=== PATIENT | female | born 1955 ===

== ENCOUNTER 2024-11-21 10:32 | Outpatient (AMB) | payer MEDICARE, SELFPAY ==
[2024-11-21 10:37] VITALS: BP 132/60; PULSE 78; RESP 18; O2SAT 97; BMI 23.8
--- NOTE | 2024-11-21 10:37 | MHC.OFFVIS ---
Vital Signs 11/21/24 10:37 Height 5 ft 2 in Weight 130 lb BMI 23.8 BP 132/60 Blood Pressure Location Lt brachial Position Sitting Respiration 18 Pulse 78 Pulse Source Pulse Oximeter Pulse Oximetry (%) 97 Oxygen Delivery Method Room Air Intake Visit Reasons: Chronic right flank pain [employer] Required: No Allergies [id number] Reductase Inhibitor Allergy (Unknown, Verified 11/19/24 08:59) Muscle Aches HPI Comments Details: Soto (Jami) is very pleasant 69 years old female who is presenting in my office with complains on right upper quadrant abdominal pain and sensation of bulging right upper quadrant. She reported that this pain started 2 months after the lobectomy surgery on the right she had performed to remove the lung cancer lesion. Since then she reports severe pain in the projection of the right abdominal wall radiating into the mid back in the area of the lateral and posterior lower right chest. She went for cholecystectomy 2 years after with successful removal of gallbladder however it did not alleviate her pain. She is under observation of thoracic surgeon and she goes for the CT scan once a year to determine if there is continuation of the growth of the cancer. She can not do activities of daily living because of her pain but she is able to sleep normally and she can take care of herself. She reports that movements aggravate her pain. Applications of heat called topical medications and oral medications make her pain better. She was taking gabapentin 200 mg 3 times a day with no side effects and minimal improvement. In terms of tissue damage he reports her pain as pinching, cramping, crushing, tight, squeezing, tearing sensation. She completed physical therapy 12 sessions and continues home exercise program with minimal improvement. Massage therapy does not make her pain better. Acupuncture does not patent make her pain better. She denies any past medical history short of history of lung cancer. Surgical history is above. She denies smoking cigarettes [place] smoked. She admits occasional drink alcohol once a month she denies recreational drugs. Review of Systems Const All systems reviewed & are unremarkable except as noted in HPI and below ENT Reports Normal hearing present Neuro Reports Normal hearing present, Denies Abnormal speech present, Denies confusion and Denies Sensory deficit (Neuro) Psych Denies confusion Physical Exam Vital Signs: Last Vital Signs Pulse 78 11/21/24 10:37 Resp 18 11/21/24 10:37 BP 132/60 11/21/24 10:37 Pulse Ox 97 11/21/24 10:37 Oxygen Delivery Method Room Air 11/21/24 10:37 BMI result Body Mass Index 23.8 Const General: no acute distress; No confusion Nutritional Appearance: average body habitus and thin Orientation/consciousness: patient oriented x3 and No confusion Limitations: no limitations Eyes General: appearance normal, both eyes and all related structures Pupils: Equal, round and reactive pupils present EOM: EOMs intact bilaterally Neck Neck: Yes full ROM Chest Other: On inspection of the chest and anterior surface of the abdomen there are very well-healed 1 cm long thoracic incisions from prior thoracoscopy and cancer removal. On the anterior surface of the patient's abdomen there are also incisions from prior early performed gallbladder surgery. All incisions are very well-healed no signs of inflammation, swelling, redness, pathological discharge. Resp Effort & Inspection: normal respiratory effort, able to speak in complete sentences, normal respiratory pattern, no audible wheezes and no cough Cardio Jugular venous distension: no JVD GI Inspection: Yes normal to inspection Neuro General: patient oriented x3, gait normal and No confusion Cranial nerves: Yes CN's II-XII intact bilaterally, Yes Equal, round and reactive pupils present, Yes Normal hearing present and Yes Ability to bilaterally elevate shoulders present Speech: No Abnormal speech present Gait exam (Neuro): Normal gait present Motor exam (neuro): 5/5 motor strength present throughout Sensory Exam: No Sensory deficit (Neuro) Extrem General: No pedal edema Psych Speech and movement: Normal speech and movement present Affect: normal affect Attitude: cooperative Thought process: Normal thought process present Thought content: Normal thought content present Insight: Good insight present (Psych) Judgement: Good judgement present (Psych) Assessment & Plan Assessment & Plan (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 It looks like that gabapentin helps her pain. And there is no side effects of from gabapentin. I also offered her to go for diagnostic intercostal nerve block with the rib sides determined by palpation under x-ray guidance. With good results of the intercostal nerve block treatment of the intercostal sprint versus Curonix stimulation could be offered to the patient. Medications: New gabapentin 600 mg (2 x 300 mg) PO TID 180 caps 8RF 30 days Patient Instructions: I here by testify that I spent 45 minutes in conversation with this patient as well as planning her care investigating the number of her pharmacy and organizing this note. Coding Level of Care Code New Pt Level 4 (90993) Diagnoses Intercostal neuralgia G58.8 Chronic pain syndrome G89.4
--- OUTSIDE RECORDS SUMMARY | 2024-11-21 11:31 | XMS_ITS | Clinical Summary ---
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 Active cholecalciferol (VITAMIN D-3) 25 mcg (1,000 unit) tablet Take by mouth. Activ e coenzyme Q-10 200 mg capsule Take 200 mg by mouth daily. 9 Active fluticasone propion-salmetero L (Advair Diskus) 100-50 mcg/dose diskus inhalerIndication s:Mild persistent asthma without complication Inhale 1 puff by mouth 2 (two) times a day. Rinse mouth with water after use to reduce aftertaste and incidence of candidiasis. Do not swallow. 3 each 4 5 08/08/19 26 Active tiZANidine (ZANAFLEX) 4 mg tablet TAKE 1 TABLET (4 MG TOTAL) BY MOUTH 1 (ONE) TIME EACH DAY IF NEEDED FOR MUSCLE SPASMS. 90 tablet 1 5 Active gabapentin (NEURONTIN) 100 mg capsuleIndication s:Chronic neck and back pain TAKE 2 CAPSULES BY MOUTH 3 TIMES A DAY. 180 capsule 1 5 Active Active Problems Problem Noted Date Diagnosed Date History of lung cancer 06/28/2024 Assessment & Plan (10/04/2024 3:16 PM EDT): Ms. Kaplan is a 69 yr. female who is S/P a robotic VATS right lower lobectomy for a stage 1A3 adenocarcinoma in July 2020. She did not require adujvant chemotherapy. During patient's last visit with us in June it was noted that there were new findings of the centrilobular groundglass nodules in the right lung base she was informed that we will move forward with a 3-month chest CT scan follow-up to ensure resolution for which she presents for review today. While she was in office we did review her most recent chest CT scan which was performed at [facility] and shows interval clearing of previously seen groundglass opacities in the right lower lobe with scattered small pulmonary nodules similar to prior which all remained stable. She was educated that we will continue with her regular 12-month chest CT surveillance with her next chest CT scan due in September 2025 and have a visit at the thoracic surgery department thereafter to discuss results.. Assessment & Plan (06/28/2024 2:07 PM EST): Ms. Kaplan is a 69 yr. female who is S/P a robotic VATS right lower lobectomy for a stage 1A3 adenocarcinoma in July 2020. She did not require adujvant chemotherapy. Her most recent surveillance chest CT scan which was performed on 2024 which shows mild bronchial wall thickening with multiple small new centrilobular groundglass nodules at the right lung base suggestive of an infectious/inflammatory process also noted is stable scarring at the right apex with a stable 4 mm groundglass nodule in the right apex as well as a stable triangular-shaped groundglass 6 mm nodule in the anterior right upper lobe and a stable elongated 4 mm nodule in the inferior right upper lobe. Due to the new findings of the centrilobular groundglass nodules in the right lung base she was informed that we will move forward with a 3-month chest CT scan follow-up to ensure resolution. Her next chest CT scan follow-up will be due in September 2024 and have a visit at the thoracic surgery department thereafter to discuss results. Pulmonary nodule 06/28/2024 Assessment & Plan (06/28/2024 2:08 PM EST): Due to the new findings of the centrilobular groundglass nodules in the right lung base she was informed that we will move forward with a 3-month chest CT scan follow-up to ensure resolution. Hyperlipidemia 05/18/2024 Overview (05/18/2024): Last Assessment & Plan: Patient with significant hyperlipidemia she was placed back on statin therapy and she is on muscle pain again so we will discontinue statin therapy start her on Zetia 10 mg a day Osteopenia 05/18/2024 Chronic right flank pain 08/03/2023 Assessment & Plan (10/04/2024 3:16 PM EDT): Unfortunately she continues to have a significant amount of pain along her right sided chest wall incisions that radiate to her back she states that this pain was exacerbated after having recent gallbladder surgery and is requesting a referral to pain management. Assessment & Plan (06/28/2024 2:07 PM EST): Unfortunately she continues to have a significant amount of pain along her right sided chest wall incisions that radiate to her back she states that this pain was exacerbated after having recent gallbladder surgery and is requesting a referral to pain management. Syncope 07/28/2020 Overview (05/18/2024): Last Assessment & Plan: Patient with an episode of syncope. An unusual episode because it persisted for almost 12 hours. Her symptoms started in the evening she went to bed. When she woke up the next morning she developed presyncopal symptoms after being upright for a few minutes. She went to the bathroom brushed her teeth got lightheaded and passed out again there does not seem to be any antecedent event such as diarrhea nausea vomiting or decreased fluid intake but this type of pattern is consistent with a hyperperfused of pattern due to poor filling there is no indication of pulmonary embolism. It is unusual for to be an arrhythmia to persist so long and also be somewhat positional each time she had syncope she was upright. I suspect she was orthostatic for unclear reasons possibly vagally mediated. I doubt the pulmonary nodule which seems to be metabolically active is responsible for any the symptoms since its a lower lung nodule and not a Pancoast tumor. The patient has no indication that the mass is compressing the superior or inferior vena cava. There is no indication that this is an endocrine based tumor. No indication that she has severe pulmonary hypertension which could prompt a syncopal episode. I think this was a simple reflect syncope. I have offered an ROCT monitor which I think would be appropriate the extended period of monitoring of also discussed with her implantable loop recorder which she is really not interested in at this time. I would recommend that we do a 30-day monitoring and if that is negative and there is no further symptoms just consider this a reflux event Osteoporosis 04/22/2020 Overview (05/18/2024): start fosamax 04/24/20 Allergic rhinitis 09/21/2018 Diverticulosis of sigmoid colon 09/21/2018 Resolved Problems Problem Noted Date Diagnosed Date Resolved Date Biliary colic 08/03/2023 06/26/2024 Encounters Date Type Department Care Team Description 11/06/2024 4:00 PM EDT Office Visit Internal Medicine [address] [phone] Lynsey Orozco PA Chronic neck and back pain (Primary Dx) 10/30/2024 11:00 AM EDT Treatment [address] [phone] Ofelia Gonzalez PT Chronic neck and back pain (Primary Dx) 10/23/2024 11:00 AM EDT Treatment [address] [phone] Ofelia Gonzalez PT Chronic neck and back pain (Primary Dx) 10/12/2024 11:00 AM EDT Office Visit Pulmonolgy [address] [phone] Moira Perez NP Mild persistent asthma without complication (Primary Dx); Chronic cough; History of lung cancer; Non-seasonal allergic rhinitis, unspecified trigger; Pulmonary nodule 10/04/2024 Telephone Thoracic Surgery - [place] [address] [place] [phone] Gala Foote [place] 10/03/2024 9:30 AM EDT Office Visit Thoracic Surgery [facility] [address] [place] [phone] Michael Barnes, PA History of lung cancer (Primary Dx); Chronic right flank pain 10/01/2024 9:44 AM EDT - 10/01/2024 11:59 PM EDT Hospital Encounter [facility] CT Scan [address] [place] [phone] History of lung cancer; Chronic right flank pain; Pulmonary nodule Discharge Disposition: Home or Self Care 10/01/2024 9:06 AM EDT - 10/01/2024 11:59 PM EDT Hospital Encounter [facility] CT Scan [address] [place] [phone] Right upper quadrant abdominal pain Discharge Disposition: Home or Self Care 09/25/2024 11:30 AM EDT Treatment [facility] [address] [address] Ofelia Gonzalez, PT Chronic neck and back pain (Primary Dx) 09/12/2024 11:30 AM EDT Treatment [facility] [address] [phone] Ofelia Gonzalez, PT Chronic neck and back pain (Primary Dx) 09/10/2024 11:30 AM EDT Treatment [facility] [address] [phone] Ofelia Gonzalez, PT Chronic neck and back pain (Primary Dx) 09/05/2024 2:00 PM EDT Treatment [facility] [address] [phone] Ofelia Gonzalez, PT Chronic neck and back pain (Primary Dx) 09/05/2024 11:00 AM EDT Ancillary Procedure Pulmonolgy - [place] [address] [facility] [address] [place] [phone] Chronic cough 09/03/2024 11:30 AM EDT Treatment [address] [phone] MosOfelia rowan, PT Chronic neck and back pain (Primary Dx) 08/29/2024 10:30 AM EDT Treatment [address] [phone] Mosjaysonl, Ofelia, PT Chronic neck and back pain (Primary Dx) from Last 3 Months Immunizations Name Administration Dates Next Due Tdap Tetanus diptheria acell ular pertussis (Boostrix; Adacel) 7yo and older 05/16/2015 Surgical History Surgery Date Site/Laterality Comments HYSTERECTOMY 1998 PROCEDURE: HISTORICAL HYSTERECTOMY; COMMENT: Dr. Rodriguez due to fibroids and DUB- still has ovaries EYE SURGERY 2012 PROCEDURE: HISTORICAL EYE SURGERY; COMMENT: ptosis correction COLONOSCOPY 11/25/2016 PROCEDURE: HISTORICAL COLONOSCOPY; COMMENT: repeat 10 years OTHER SURGICAL HISTORY 08/05/2020 Right PROCEDURE: [facility] ANES THORACOTOMY & THORACOSCOPY PULMONARY RESC; COMMENT: 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 Handy CHOLECYSTECTOMY 10/17/2023 PROCEDURE: [facility] LAPAROSCOPY SURG CHOLECYSTECTOMY Medical History Medical History Date Comments Allergic rhinitis 09/21/2018 DX:Allergic rh initis Diverticulosis of sigmoid colon 09/21/2018 DX:Diverticulosis of sigmoid colon Hyperlipidemia DX:Hyperlipidemi a Osteoporosis 04/22/2020 DX:Osteoporosis; COMMENT: start fosamax 04/24/20 History of COVID-19 05/21/2021 DX:History o f COVID-19; COMMENT: no residual symptoms History of lung cancer DX:Histor y of lung cancer; COMMENT: s/p RLL removal 07/2020 Dr. Handy Family History Medical History Relation Name Comments Melanoma Brother 1 HTN Prostate cancer Brother 2 HTN Prostate cancer Father 83 Hyperthyroidism Mother HEp C cirrho sis, heart disease age 83 Breast cancer Sister age 57 y Relation Name Status Comments Brother 1 Brother 2 Father Mother Sister Social History Tobacco Use Types Packs/Day Years Used Date Smoking Tobacco: Never Smokeless Tobacco: Never Tobacco Cessation:Counseling Given: Not Answered Alcohol Use Standard Drinks/Week Comments Yes 0 (1 standard drink = 0.6 oz pur e alcohol) Comments Unknown Sex and Gender Information Value Date Recorded Sex Assigned at Female 08/24/2024 11:43 AM EDT Legal Sex Female 2:13 PM EST Gender Identity Female 08/24/2024 11:43 AM EDT Sexual Orientation Straight 08/24/2024 11 :43 AM EDT Obstetrics History Last Filed Vital Signs Vital Sign Reading Time Taken Comments Blood Pressure 128/79 11/06/2024 3:48 PM EDT Pulse 66 11/06/2024 3:48 PM EDT Temperature 36.7 C (98 F) 11/06/2024 3:48 PM EDT Respiratory Rate 20 10/12/2024 10:5 3 AM EDT Oxygen Saturation 98% 11/06/2024 3:48 PM EDT Inhaled Oxygen Concentration - - Weight 58.8 kg (129 lb 11.2 oz) 11/06/2024 3:48 PM EDT Height 157.5 cm (5' 2 ) 11/06/2024 3:48 PM EDT Body Mass Index 23.72 11/06/2024 3:48 PM EDT Plan of Treatment Upcoming Encounters Date Type Department Care Team (Late st Contact Info) Description 11/30/2024 11:20 AM EDT Consult Gastroenterology [facility] [address] [phone] Ame Ball NP [address] [address] 02/12/2025 11:00 AM EDT Office Visit Pulmonolgy - [place] [address] [phone] Moira Perez NP [address] [address] 05/13/2025 11:00 AM EST Office Visit Internal Medicine - [place] [address] [phone] Lynsey Orozco PA 175 [facility] [address] [place] [address] Health Maintenance Due Date Last Done Comments Pneumococcal Vaccine: 50+ Years (1 of 2 - PCV) 1974 Zoster Vaccines (1 of 2) 2005 RSV Immunization Adult Patients (1 - Risk 60-74 years 1-dose series) 2015 Depression Screening 04/24/2022 Falls Risk Assessment 04/24/2022 Hepatitis C Screening 04/24/2022 Medicare Annual Wellness Visit 04/24/2022 Social Influencers of Health Screening 04/24/2022 COVID-19 Vaccine ( season) 2024 Breast Cancer Screening 08/28/2024 08/29/19 23, 06/26/2021, 04/22/2020, Additional history exists Influenza Vaccine (#1) 2025 DTaP,Tdap,and Td Vaccines (2 - Td or Tdap) 05/16/2025 05/16/2015 Colorectal Cancer Screening: Colonoscopy 11/25/2026 11/25/2016 Cholesterol Screening (Lipid Panel) 06/27/2029 06/27/2024, 06/24/2023 Osteoporosis Screening (Bone Density Screening) 04/22/2030 04/22/2020 HIB Vaccines Aged Out No longer eligi ble based on patient's age to complete this topic HPV Vaccines Aged Out No longer eligi ble based on patient's age to complete this topic Hepatitis A Vaccines Aged Out No long er eligible based on patient's age to complete this topic Hepatitis B Vaccines Aged Out No long er eligible based on patient's age to complete this topic IPV Vaccines Aged Out No longer eligi ble based on patient's age to complete this topic MMR Vaccines Aged Out No longer eligi ble based on patient's age to complete this topic Meningococcal ACWY Vaccine Aged Out N o longer eligible based on patient's age to complete this topic Meningococcal B Vaccine Aged Out No l onger eligible based on patient's age to complete this topic RSV Immunization Patients Under 20 months Aged Out No longer eligible based on patient's age to complete this topic Varicella Vaccines Aged Out No longer eligible based on patient's age to complete this topic Procedures Procedure Name Priority Date/Time Associated Diagnosis Comments CT CHEST WO CONTRAST Routine 10/01/2024 9:47 AM EDT History of lung cancer Chronic right flank pain Pulmonary nodule CT ABDOMEN PELVIS WO CONTRAST Routine 10/01/2024 9:35 AM EDT Right upper quadrant abdominal pain PULMONARY FUNCTION TESTING Routine 09/05/2024 11:32 AM EDT Chronic cough PULMONARY FUNCTION TESTING Routine 09/05/2024 11:32 AM EDT Chronic cough LIPID PANEL WITH REFLEX TO DIRECT LDL Routine 06/27/2024 11:11 AM EST Abnormal chest CT Right upper quadrant abdominal pain History of lung cancer Pure hypercholesterolemia [facility] SCREENING DIGITAL Routine 08/28/2022 3:10 PM EDT Encounter for screening mammogram for malignant neoplasm of breast [facility] DEXA AXIAL SKELETON Routine 04/22/2020 3:25 PM EST Encounter for screening for osteoporosis COLONOSCOPY Routine 11/25/2016 from Last 3 Months or Most Recently Relevant to Health Maintenance Results * CT Chest wo Contrast (10/01/2024 9:47 AM EDT) Anatomical Region Laterality Modality Body Computed Tomogra phy 10/02/2024 5:37 AM EDT Impressions 10/02/2024 5:46 AM EDT Interval clearing of previously seen groundglass opacities in the right lower lobe with scattered small pulmonary nodules, similar to prior. -------- FINAL REPORT -------- Dictated By: Kirti Andujar Dictated Date: 10/02/2024 05:37 ET Assigned Physician: Kirti Andujar Reviewed and Electronically Signed By: Kirti Andujar Signed Date: 10/02/2024 05:46 ET Workstation ID: [id number] Transcribed By: Self Edit Transcribed Date: 10/02/2024 05:37 ET Narrative 10/02/2024 5:46 AM EDT INDICATION: History of lung cancer with new groundglass nodules in the right lung base TECHNIQUE: Multiple contiguous axial CT images were obtained of the chest without intravenous contrast. Multiplanar reformats were created and interpreted. The CT scanner utilized low- dose iterative reconstruction technique with automatic exposure control based on patient size. DLP: 152.22 mGy-cm COMPARISON: June 2024, June 2022 and June [address] FINDINGS: Lack of intravenous contrast limits evaluation of the penny, vascular structures and abdominal viscera. LUNGS/PLEURA: Postsurgical appearance in the right lower lobe with volume loss and cystic change in the medial right lung base; similar to prior. Central airways are patent. Mild biapical pleural-parenchymal scarring. Previously seen groundglass opacities in the right lung base demonstrate interval clearing. 6 mm groundglass/partially solid nodule in the anterior right upper lobe (series 3, image 48); similar to prior. 4 mm solid elongated nodule in the inferior right upper lobe (series 3, image 113); similar to prior. 3 mm nodule in the left lung apex (series 3, image 21); similar to priors. Other scattered small pulmonary nodules are similar to prior. MEDIASTINUM: Evaluation for hilar lymphadenopathy is limited due to lack of IV contrast. Calcification of the thyroid gland is again noted. No definite enlarged mediastinal lymphadenopathy. MISCELLANEOUS: No axillary lymphadenopathy. UPPER ABDOMEN: Status post cholecystectomy. Hepatic and splenic calcification likely representing prior granulomatous disease. Calcified diverticulum. BONES AND SOFT TISSUES: Scattered degenerative changes seen throughout the bones. Procedure Note Kirti Andujar MD - 10/02/2024 INDICATION: History of lung cancer with new groundglass nodules in theright lung base TECHNIQUE: Multiple contiguous axial CT images were obtained of the chestwithout intravenous contrast. Multiplanar reformats were created andinterpreted. The CT scanner utilized low-dose iterative reconstructiontechnique with automatic exposure control based on patient size. DLP: 152.22 mGy-cm COMPARISON: June 2024, June 2022 and June [address] FINDINGS: Lack of intravenous contrast limits evaluation of the penny,vascular structures and abdominal viscera. LUNGS/PLEURA: Postsurgical appearance in the right lower lobe with volumeloss and cystic change in the medial right lung base; similar to prior.Central airways are patent. Mild biapical pleural-parenchymal scarring. Previously seen groundglass opacities in the right lung base demonstrateinterval clearing. 6 mm groundglass/partially solid nodule in the anterior right upper lobe(series 3, image 48); similar to prior. 4 mm solid elongated nodule inthe inferior right upper lobe (series 3, image 113); similar to prior. 3mm nodule in the left lung apex (series 3, image 21); similar to priors.Other scattered small pulmonary nodules are similar to prior. MEDIASTINUM: Evaluation for hilar lymphadenopathy is limited due to lackof IV contrast. Calcification of the thyroid gland is again noted. Nodefinite enlarged mediastinal lymphadenopathy. MISCELLANEOUS: No axillary lymphadenopathy. UPPER ABDOMEN: Status post cholecystectomy. Hepatic and spleniccalcification likely representing prior granulomatous disease. Calcifieddiverticulum. BONES AND SOFT TISSUES: Scattered degenerative changes seen throughout thebones. IMPRESSION: Interval clearing of previously seen groundglass opacities in the rightlower lobe with scattered small pulmonary nodules, similar to prior. -------- FINAL REPORT -------- Dictated By: Kirti Andujar Dictated Date: 10/02/2024 05:37 ET Assigned Physician: Kirti Andujar Reviewed and Electronically Signed By: Kirti Andujar Signed Date: 10/02/2024 05:46 ET Workstation ID: [id number] Transcribed By: Self Edit Transcribed Date: 10/02/2024 05:37 ET Michael LOPEZ IMG CT PROCEDURES Final Result * CT Abdomen Pelvis wo Contrast (10/01/2024 9:35 AM EDT) Anatomical Region Laterality Modality Body Computed Tomogra phy 10/01/2024 10:1 8 AM EDT Impressions 10/01/2024 10:23 AM EDT 1. Moderate amount of stool in the colon. 2. Diverticulosis -------- FINAL REPORT -------- Dictated By: Kirti Andujar Dictated Date: 10/01/2024 10:18 ET Assigned Physician: Kirti Andujar Reviewed and Electronically Signed By: Kirti Andujar Signed Date: 10/01/2024 10:23 ET Workstation ID: [id number] Transcribed By: Self Edit Transcribed Date: 10/01/2024 10:18 ET Narrative 10/01/2024 10:23 AM EDT INDICATION: Right upper quadrant/right flank pain with history of cholecystectomy and right lung surgery TECHNIQUE: Multiple contiguous axial CT images were obtained of the abdomen and pelvis without IV contrast. Multiplanar reformats were created and interpreted. Enteric contrast was not administered.The CT scanner utilized low-dose iterative reconstruction technique with automatic exposure control based on patient size. DLP: 502.37 mGy-cm COMPARISON: Prior chest CT June 2024 and prior PET/CT July 2020 FINDINGS:Lack of intravenous contrast limits evaluation of the penny, vascular structures and visualized abdominal viscera. Bowel related pathology may be occult on CT without enteral opacification. LUNG BASES: Volume loss and cystic change in the medial right lung base; similar to prior. Postsurgical appearance in the right lower lobe. HEPATOBILIARY: Unenhanced liver demonstrates calcification in keeping with prior granulomatous disease. Status post cholecystectomy with dilatation of the common bile duct which may represent reservoir effect. SPLEEN: Splenic calcifications which may represent prior granulomatous disease. PANCREAS: Unenhanced pancreas is unremarkable. ADRENALS: No nodules. KIDNEYS/URETERS: No hydronephrosis or hydroureter. No obstructing nephrolithiasis. PELVIC ORGANS/BLADDER: Unremarkable. LYMPH NODES/PERITONEUM / RETROPERITONEUM: Unremarkable VESSELS: No aneurysm. GI TRACT: Moderate amount of stool in the colon. Diverticulosis. Fat-containing umbilical hernia. No small or large bowel obstruction. BONES AND SOFT TISSUES: Scattered degenerative changes. Procedure Note Kirti Andujar MD - 10/01/2024 INDICATION: Right upper quadrant/right flank pain with history ofcholecystectomy and right lung surgery TECHNIQUE: Multiple contiguous axial CT images were obtained of theabdomen and pelvis without IV contrast. Multiplanar reformats werecreated and interpreted. Enteric contrast was not administered.The CTscanner utilized low-dose iterative reconstruction technique withautomatic exposure control based on patient size. DLP: 502.37 mGy-cm COMPARISON: Prior chest CT June 2024 and prior PET/CT July 2020 FINDINGS:Lack of intravenous contrast limits evaluation of the penny,vascular structures and visualized abdominal viscera. Bowel relatedpathology may be occult on CT without enteral opacification. LUNG BASES: Volume loss and cystic change in the medial right lung base;similar to prior. Postsurgical appearance in the right lower lobe. HEPATOBILIARY: Unenhanced liver demonstrates calcification in keeping withprior granulomatous disease. Status post cholecystectomy with dilatationof the common bile duct which may represent reservoir effect. SPLEEN: Splenic calcifications which may represent prior granulomatousdisease. PANCREAS: Unenhanced pancreas is unremarkable. ADRENALS: No nodules. KIDNEYS/URETERS: No hydronephrosis or hydroureter. No obstructingnephrolithiasis. PELVIC ORGANS/BLADDER: Unremarkable. LYMPH NODES/PERITONEUM / RETROPERITONEUM: Unremarkable VESSELS: No aneurysm. GI TRACT: Moderate amount of stool in the colon. Diverticulosis.Fat-containing umbilical hernia. No small or large bowel obstruction. BONES AND SOFT TISSUES: Scattered degenerative changes. IMPRESSION: 1. Moderate amount of stool in the colon. 2. Diverticulosis -------- FINAL REPORT -------- Dictated By: Kirti Andujar Dictated Date: 10/01/2024 10:18 ET Assigned Physician: Kirti Andujar Reviewed and Electronically Signed By: Kirti Andujar Signed Date: 10/01/2024 10:23 ET Workstation ID: [id number] Transcribed By: Self Edit Transcribed Date: 10/01/2024 10:18 ET us Lynsey LOPEZ IMG CT PROCEDURES Final Result * Pulmonary function testing: Carbon Monoxide Diffusing Capacity, Spirometry with Bronchodilator, Flow Volume Loop, Maximum Voluntary Ventilation, Spirometry, Vital Capacity Test (09/05/2024 11:32 AM EDT) Impressions Denisa Li MD - 09/05/2024 11:32 AM EDT 09/05/2024 Spirometry FEV1 109% predicted, FVC is 91% predicted, FEV1/FVC ratio is normal. No improvement post bronchodilators Lung volume TLC 102% normal, RV/TLC is 107% normal Diffusion DlCO/VA is 90% normal In Summary, this is a normal PFT Moira Perez NP PFT ORDERABLES Final R esult * (ABNORMAL) Lipid panel with reflex to direct LDL (06/27/2024 11:11 AM EST) Cholesterol 320(H) 0 - 200 mg/dL LAB CHEMISTRY METHOD 06/27/2024 2:40 PM EST [facility] Triglycerides 93 0 - 150 mg/dL LAB CHEMISTRY METHOD 06/27/2024 2:40 PM EST [facility] HDL 108 >=40 mg/dL LAB CHEMISTRY METHOD 06/27/2024 2:40 PM EST [facility] Comment:Results verified by repeat testing LDL Calculated 193(H) 0 - 100 mg/dL LAB CHEMISTRY METHOD 06/27/2024 2:40 PM EST [facility] VLDL Cholesterol Javid 18.6 mg/dL LAB CHEMISTRY METHOD 06/27/2024 2:40 PM EST [facility] Non HDL Chol. (LDL+VLDL) 212(H) <145 mg/dL LAB CHEMISTRY METHOD 06/27/2024 2:40 PM EST [facility] Chol/HDL Ratio 3.0 0.0 - 4.4 LAB CHEMISTRY METHOD 06/27/2024 2:40 PM EST [facility] Blood Venous blood specimen / Unknown Venipuncture / Unknown 06/27/2024 11:11 AM EST 06/27/2024 12:44 PM EST us Lynsey LOPEZ LAB BLOOD ORDERABLES Fin al Result [facility] [address] [place] [address], * CARMELA SCREENING DIGITAL (08/28/2022 3:10 PM EDT) Anatomical Region Laterality Modality Mammography 08/26/2022 3:01 PM EDT Narrative 08/28/2022 3:10 PM EDT [facility] Diagnostic Imaging Department [address] [place] [address] Patient: CECILY KAPLAN /Age/Sex: 1955 - 67 - F Unit#: [id number] Location/Status: SPDIMA/REG CLI Mnemonic/Ordering Site: [facility] Ordering Physician: PASCUAL MALDONADO MD [facility] Screening Digital - 08/26/22 - EXAM: [facility] Screening Digital EXAM DATE AND TIME: 08/26/2022 3:27 PM HISTORY: Screening. 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 Sister had breast carcinoma at age 55. COMPARISON: 06/26/21, 04/22/20, 03/01/19, 02/27/18, 08/20/14 TECHNIQUE: CC and MLO views of both breasts were obtained using full field digital mammography. Bilateral digital breast tomosynthesis was performed in the MLO projection. Computer aided detection with H5 7.2-H and [employer] 3D 3.1 was employed. TISSUE DENSITY: c. The breasts are heterogeneously dense, which may obscure small masses. FINDINGS: A 6 mm asymmetry is seen in the inferior right breast, MLO views only, possibly summation artifact. MLO spot compression tomosynthesis views and full lateral tomosynthesis views are recommended for further assessment. No grouped microcalcifications or areas of architectural distortion are seen. Vascular calcification is present. The skin is unremarkable. IMPRESSION: 1. Right breast asymmetry, for which additional views are recommended. The patient will be called back. 2. Stable mammographic appearance of the left breast. No evidence of malignancy is seen. BI-RADS: Category 0: Incomplete - Need Additional Imaging Evaluation RECOMMENDATION(S): 1: Special mammographic view(s) needed RIGHT 01631, 54481 8640F, 8177F Dictating Physician: TESSA GASTON MD Electronically Signed by: TESSA GASTON MD Dic Date/Time: 08/28/22 1508 Sign date/Time: 08/28/22 1510 Procedure Note Tessa Gaston MD - 06/17/2023 [facility] Diagnostic Imaging Department [address] [place] [address] Patient: CECILY KAPLAN D.O.B./Age/Sex: 1955 - 67 - F Unit#: [id number] [facility] CLI Mnemonic/Ordering Site: [facility] Ordering Physician: PASCUAL MALDONADO MD [facility] Screening Digital - 08/26/22 - EXAM: [facility] Screening Digital EXAM DATE AND TIME: 08/26/2022 3:27 PM HISTORY: Screening. Personal history of non-small cell carcinoma of theright lung treated with right lower lobectomy in 2020. Sister had breastcarcinoma at age 55. COMPARISON: 06/26/21, 04/22/20, 03/01/19, 02/27/18, 08/20/14 TECHNIQUE: CC and MLO views of both breasts were obtained using fullfield digital mammography. Bilateral digital breast tomosynthesis was performedin the MLO projection. Computer aided detection with iCAD PowerLook 7.2-H and[employer] 3D 3.1 was employed. TISSUE DENSITY: c. The breasts are heterogeneously dense, which mayobscure small masses. FINDINGS: A 6 mm asymmetry is seen in the inferior right breast, MLO views only,possibly summation artifact. MLO spot compression tomosynthesis views and fulllateral tomosynthesis views are recommended for further assessment. No grouped microcalcifications or areas of architectural distortion areseen. Vascular calcification is present. The skin is unremarkable. IMPRESSION: 1. Right breast asymmetry, for which additional views are recommended.The patient will be called back. 2. Stable mammographic appearance of the left breast. No evidence ofmalignancy is seen. BI-RADS: Category 0: Incomplete - Need Additional Imaging Evaluation RECOMMENDATION(S): 1: Special mammographic view(s) needed RIGHT 28450, 56262 3340F, 7025F Dictating Physician: TESSA GASTON MD Electronically Signed by: TESSA GASTON MD Dic Date/Time: 08/28/22 1508 Sign date/Time: 08/28/22 1510 Pascual Maldonado MD IMG BI PROCEDURES Final Result * CARMELA DEXA AXIAL SKELETON (04/22/2020 3:25 PM EST) Anatomical Region Laterality Modality Mammography 04/22/2020 12:5 8 PM EST Narrative 04/22/2020 3:25 PM EST [facility] Diagnostic Imaging Department [address] [place] [address] Patient: CECILY KAPLAN D.O.B./Age/Sex: 1955 - 65 - F Unit#: [id number] Location/Status: SPDIMAM/REG CLI [facility] Ordering Physician: PASCUAL MALDONADO MD Carmela Dexa Axial Skeleton - 04/22/201404 HISTORY: The patient is a 65-year-old postmenopausal female with clinical concern for metabolic bone disease. FINDINGS: Dual energy x-ray absorptiometry of the lumbar spine and femurs is performed. The mean bone mineral density at L1-L4 is 0.859 gm/cm2 which is 73% of that of young normals and 89% of that of age matched controls. This yields a T-score of -2.7 and a Z-score of -0.9 which is diagnostic of osteoporosis. The mean bone mineral density of the femurs bilaterally is 0.77 gm/cm2 which is 76% of that of young normals and 91% of that of age matched controls. This yields a T-score of -1.9 and a Z-score of -0.6 which is diagnostic of osteopenia. IMPRESSION: 1. Osteoporosis. 2. FRAX analysis yields a 10-year probability of major osteoporotic fracture of 8.9% and a 10-year probability of hip fracture of 2.3%. Code 39203 Dictating Physician: ELENA REN MD Electronically Signed by: ELENA REN MD Dic Date/Time: 04/22/20 1521 Sign date/Time: 04/22/20 1525 Procedure Note Lexie Ren MD - 05/04/2022 [facility] Diagnostic Imaging Department [address] [place] [address] Patient: CECILY KAPLANO.B./Age/Sex: 1955 - 65 - F Unit#: [id number] Location/Status: SPDIMAM/REG CLI Mnemonic[facility] Ordering Physician: PASCUAL MALDONADO MD [facility] Dexa Axial Skeleton - 04/22/201404 HISTORY: The patient is a 65-year-old postmenopausal female withclinical concern for metabolic bone disease. FINDINGS: Dual energy x-ray absorptiometry of the lumbar spine and femursis performed. The mean bone mineral density at L1-L4 is 0.859 gm/cm2 which is73% of that of young normals and 89% of that of age matched controls. Thisyields a T-score of -2.7 and a Z-score of -0.9 which is diagnostic ofosteoporosis. The mean bone mineral density of the femurs bilaterally is 0.77 gm/zj4nyikh is 76% of that of young normals and 91% of that of age matched controls.This yields a T-score of -1.9 and a Z-score of -0.6 which is diagnostic of osteopenia. IMPRESSION: 1. Osteoporosis. 2. FRAX analysis yields a 10-year probability of major osteoporoticfracture of 8.9% and a 10-year probability of hip fracture of 2.3%. Code 33414 Dictating Physician: ELENA REN MD Electronically Signed by: ELENA REN MD Dic Date/Time: 04/22/20 1521 Sign date/Time: 04/22/20 1525 Pascual Maldonado MD IM BI PROCEDURES Final Result * Colonoscopy (11/25/2016) Colonoscopy no interpretation , abstracted Anatomical Region Laterality Modality Other Historical Provider HEALTH MAINTENANCE Final Result from Last 3 Months or Most Recently Relevant to Health Maintenance Insurance [employer] Advance Directives Documents on File Type Date Recorded Patient Ballistician Expl anation Health Care Decision (hx) 06/28/2022 AD PERALES DIRECTIVE Health Care Decision (hx) 06/28/2022 AD PERALES DIRECTIVE Health Care Decision (hx) 06/28/2022 AD PERALES DIRECTIVE Health Care Decision (hx) 06/28/2022 AD PERALES DIRECTIVE Health Care Decision (hx) 06/28/2022 AD PERALES DIRECTIVE Health Care Decision (hx) 06/28/2022 AD PERALES DIRECTIVE Health Care Decision (hx) 06/28/2022 AD PERALES DIRECTIVE Health Care Decision (hx) 06/28/2022 AD PERALES DIRECTIVE Health Care Decision (hx) 06/28/2022 AD PERALES DIRECTIVE Care Teams Telegraph Lineman Relationship Specialty Start Date End Date Lynsey Orozco PA [address] [facility] [address] [place] [address] PCP - General Internal Medicine 02/26/20
--- OUTSIDE RECORDS SUMMARY | 2024-11-21 11:31 | XMS_ITS | Data Portability ---
Author Organization [place] - [facility] Address [address] [place] [id number] Care Team Providers Care Pharmacy Coordinator Name Role Phone LAURA GUARDADO Primary Care Provider Assessment Encounter Date Assessment Date Assessment LastModified by Organization Details LastModified Time 05/29/2021 05/29/2021 Overview/History :P atient with complaints of fever malaise body aches headache dry hacking cough she states started 2 days ago. Patient states that at a time she performed a self home COVID test that came back positive. Patient requesting further evaluation to determine if there is anything else that can be done. Exam: new pt to and to this provider Nontoxic afebrile 66-year-old female in no acute distress at this time. Patient does have erythematous and edematous nasal mucosa a mild pharyngeal erythema without any tonsillar swelling or exudate. Clear postnasal drainage noted. Anterior cervical lymphadenopathy present. Lungs clear however diminished in the right lower lobe this is expected as patient has had a right lower lobe lobectomy. CV: RRR. DTRs 2+. Patient ambulatory. Cranial nerves II-XII grossly intact DDx considered, but not limited to: Viral syndrome COVID-19 Influenza A CVA ICH Pneumonia and Work up/Results: HPI and PE most suggestive of VIral syndrome Rapid COVID test is positive. Plan/Discussion: Discussed quarantine with the patient and [id number] medications. Patient requests something to help with her cough at night. Tessalon prescription sent to her pharmacy. Instructed the patient to continue moving and stay active. Patient also states she has an incentive spirometer and we discussed the use of this as well. I discussed the use of a monoclonal antibodies which the patient seemed off for using a monoclonal antibodies as treatment. I filled out the information to a local infusion services and had an email to them. I informed the patient that I was unaware of what they are capabilities were at this time as there is a national shortage of monoclonals patient states she understands and will await to here from the infusion services. Proper Personal Protective Equipment (PPE), including gloves, eye protection, N95 mask, gown were donned and doffed appropriately and all equipment cleaned using approved technique with germicidal disposable wipes prior to and after care of this patient according to [facility]'s infection prevention protocols. Time On Scene with Patient: 00:26:40 [email or web address] Not available 05/29/2021 12:33:32 Plan of Treatment Reminders Order Date Submit Date Provider Last Modified By Organization Details Last Modified Time Details Appointments None recorded. Lab rapid SARS CoV 2 Ag, QL IA, respiratory specimen 2021 [email or web address] [facility], [address] [place] [address], [id number], 12:01:53 Referral None recorded. Procedures None recorded. Surgeries None recorded. Imaging None recorded. Medication Orders benzonatate 200 mg capsule 2021 022 [id number], [address] [place], [address], 12:01:43 Patient TargetsNo targets recorded. Patient Instructions Encounter Date Encounter Id Patient Instructions Last Modified By Organization Details Last Modified Time 05/29/2021 [id number] What is coronavirus disease 2019? Coronavirus disease 2019 (COVID-19) is a respiratory illness that can spread from person to person. The virus that causes COVID-19 is a novel coronavirus that was first identified during an investigation into an outbreak in [facility]. Can I get COVID-19? Yes. COVID-19 is spreading from person to person in parts of the world. Risk of infection from the virus that causes COVID-19 is higher for people who are close contacts of someone known to have COVID-19, for example household members. Other people at higher risk for infection are those who live in or have recently been in an area with ongoing spread of COVID-19. How does COVID-19 spread? The virus that causes COVID-19 probably emerged from an animal source, but is now spreading from person to person. The virus is thought to spread mainly between people who are in close contact with one another (within about 6 feet) through respiratory droplets produced when an infected person coughs or sneezes. It also may be possible that a person can get COVID-19 by touching a surface or object that has the virus on it and then touching their own mouth, nose or possibly their eyes, but this is not thought to be the main way the virus spreads. What are the symptoms of COVID-19? Patients with COVID-19 have mild to severe respiratory illness with symptoms of: fever cough shortness of breath What are severe complications from this virus? Some patients have pneumonia in both lungs, multi-organ failure and in some cases . People can help protect themselves from respiratory illness with everyday preventative actions. Avoid close contact with people who are sick. Avoid touching your eyes, nose, and mouth with unwashed hands. Wash your hands often with soap and water for at least 20 seconds. Use an alcohol-based hand gas pumper that contains at least 60% alcohol if soap and water are not available If you are sick, to keep from spreading respiratory illness to others, you should Stay home when you are sick. Cover your cough or sneeze with a tissue, then throw the tissue in the trash. Clean and disinfect frequently touched objects and surfaces. Is there a treatment? There is no specific antiviral treatment for COVID-19. People with COVID-19 can seek medical care to help relieve symptoms. FOR MORE INFORMATION: [email or web address].[email or web address] Not available 05/29/2021 12:33:57 Reason for Referral None Reported. Results Created Date Observation Date Name Description Value Unit Range Abnormal Flag Note LastModifiedBy Organization Detail LastModifiedTime 05/29/19 22 05/29/2021 rapid SARS CoV 2 Ag, QL IA, respi rator y speci men Covid-19 (ref: neg) positi ve Not Available [facility] - [address] [place], [address], 05/29/2021 12:00:32 05/29/19 22 05/29/2021 rapid SARS CoV 2 Ag, QL IA, respi rator y speci men Control Visual ized/V alid Not Available [facility] - Home [address] [place], [address], 05/29/2021 12:00:32 05/29/19 22 05/29/2021 rapid SARS CoV 2 Ag, QL IA, respi rator y speci men Location [facility], [address] [place] [address], [id number] Not Available Spr - Home [address] [place], [address], 05/29/2021 12:00:32 Result Notes None recorded. Procedures Surgical History Date Name Laterality Status Provider Name and Address Organization Details Recorded Time lobectomy of lung completed John Pedroza NP [address] [place], [address], [place] [facility] 05/29/2021 11:47:44 hysterectomy completed John Pedroza NP [address] [place], [address], [place] [facility] 05/29/2021 11:48:29 Imaging Results None recorded. Procedure Notes None recorded. Medical Equipment None Reported. Allergies Allergen ID Allergen Name Allergen Category Reaction Reaction Severity Criticality Documentation Date Start Date Code Code System Note Provider Name and Address Organization Details Recorded Time 594996 Product containin g 3-hydroxy -3-methyl glutaryl- coenzyme A reductase inhibitor (product) medicatio n Not available Not available Not available 05/29/2021 93306 009 SNOMED John Pedroza NP [address] [place], [address], [place] [facility] 11:46:24 Medications Name Sig Start Date Stop Date Status Note LastModified by Organization Details LastModified Time acetaminophe n 325 mg tablet 05/29 completed Not Available Not Available Not Available prednisone 10 mg tablet 05/29 completed Not Available Not Available Not Available atorvastatin 20 mg tablet 05/29 completed Not Available Not Available Not Available benzonatate 200 mg capsule Take 1 capsule 3 times a day by oral route for 5 days. active Not Available Not Available No t Available alendronate 70 mg tablet 05/29 completed Not Available Not Available Not Available docusate sodium 100 mg capsule 05/29 completed Not Available Not Available Not Available Senna Laxative 8.6 mg tablet 05/29 completed Not Available Not Available Not Available amoxicillin 875 mg-potassium clavulanate 125 mg tablet 05/29 completed Not Available Not Available Not Available oxycodone 5 mg tablet 05/29 completed Not Available Not Available Not Available ezetimibe 10 mg tablet 05/29 completed Not Available Not Available Not Available Vitals Date Recorded Heart rate Oxygen saturation Oxygen saturation in Arterial blood by Pulse oximetry Body temperature Respiratory rate Oxygen saturation Oxygen saturation in Arterial blood by Pulse oximetry Systolic And Diastolic Provider Name and Address Organization Details Last Updated DateTime 84 /min 96 % 96 % 99 [degF] 16 /min 97 % 97 % 124/82 mm[Hg] Not Available [facility] 11:50:02 Social History Question Answer Notes LastModified by [employer] Details LastModified Time Tobacco Smoking Status Never Smoker John Pedroza NP [address], [place], [address], [place] [facility] 05/29/2021 11:48:46 Do You Have An Advance Directive? No [email or web address] Information not available 05/29/2021 What Is Your Code Status? Full Code [email or web address] Information not available 05/29/2021 Excessive Alcohol Or Drug Use No [email or web address] Information not available 05/29/2021 Does This Patient Have A PCP? Yes [email or web address] Information not available 05/29/2021 Sex: Unknown Functional Status Question Answer Note LastModified by [employer] Details LastModified Time Do you use any illicit or recreational drugs? No [email or web address] Information not available 05/29/2021 Do you or have you ever used any other forms of tobacco or nicotine? No [email or web address] Information not available 05/29/2021 What is your level of alcohol consumption? Occasional [email or web address] Information not available 05/29/2021 Mental Status None recorded. Family History Relationship Description Onset Age of this Age Resolved Age Notes LastModified by Organization Details LastModified Time Mother Cirrhosis of liver [email or web address] Not available 2021 11:49:15 Sister Malignant tumor of breast [email or web address] Not available 2021 11:49:25 Medical History Condition Response Coronary Artery Disease N Parkinson's Disease N COPD N Depression N Hypothyroidism N A-fib N Diabetes N CHF N Cancer N Dementia N Stroke N Asthma N High Cholesterol N Rheumatoid Arthritis N Pulmonary Embolism N Hypertension N Osteoporosis N Kidney Disease N Gynecological HistoryNo gynecological history recorded. Obstetrics History GPAL:G 0 P 0 0 0 0 Past Encounters Encounter ID Performer Location Encounter Start Date Encounter Closed Date Diagnosis/Indication Diagnosis SNOMED-CT Code Diagnosis ICD10 Code Diagnosis Note [id number] John Pedroza NP [facility] - HOME [address] [place] [address] 05/29/2021 11:44:36 05/29/2021 12:35:49 COVID-19 146601203 U07.1 Acute bronchitis 6026148 2 J20.9 Health Concerns Section Related Observation LastModified by Organization Detai ls LastModified Time None Recorded Concern Status LastModified by Organization Details LastModified Time None Recorded Advance Directives Directive N: Payers Insurance Date Sequence Insurance Name Policy Number Policy Mix Covered Member ID Mix Member ID Guarantor Name 05/29/2021 1 [employer] MED[employer]ARE ADVANTAGE PLAN (MEDICARE REPLACEMENT HMO) [id number] Brittany Watson [id number] Brittany Watson 05/29/2021 1 *SELF PAY* Brittany Watson [id number] [facility] Notes Date Note Type Note Provider Name and Address Organization Details Recorded Time 05/29/2021 text/html Patient states she began having COVID-19 like sometimes this past Tuesday and describing a mild cough, fever of up to 101, headaches, body aches, and malaise. Patient states she took an at home test on this past Tuesday (2 days ago) that was positive for COVID-19. Patient states she wants to be evaluated to see if there is anything else she can do to prevent from being hospitalized. John Pedroza NP [address], [place], [address], [place] [facility] 05/29/2021 12:34:20 OBGyn Episode No OBEpisode recorded.
== END 2024-11-21 11:00 | disposition home or self-care (01) ==
LOC: HO.PMC 10:33
PROVIDERS: PCP Physician Assistant; Referring Provider Physician Assistant; Visit Provider Anesthesiology
DX: G58.8 Other specified mononeuropathies (principal); G89.4 Chronic pain syndrome
CPT/HCPCS: 99204

== ENCOUNTER → 2024-11-21 10:32 | Outpatient (BNVA) | payer MEDICARE, SELFPAY | PROVIDERS: PCP Physician Assistant; Referring Provider Physician Assistant; Visit Provider Anesthesiology | DX: G89.4 Chronic pain syndrome (principal); G58.8 Other specified mononeuropathies | CPT/HCPCS: 99202 ==

== ENCOUNTER 2025-02-12 07:40 | Outpatient (REF) | payer MEDICARE, SELFPAY ==
--- NOTE | ~2025-02-12 | FL_ITS ---
EXAMINATION: FL GUIDANCE ONLY HISTORY: G58.8 - Other specified mononeuropathies COMPARISON: None available. TECHNIQUE: Fluoroscopy time: 0.1 minute. Cumulative Dose: 0.960 mGy. DAP: 0.0166 mGym2 Images: 3. FINDINGS: Fluoroscopic spot films of the lumbar spine demonstrate a needle and contrast material in the proximal right 10th rib. FL/FL guidance in treatment room IMPRESSION: Fluoroscopy during procedure. Please see procedure report for additional information. Electronically signed by: Solitario Delgadillo MD 02/12/2025 02:29 PM EDT
--- OUTSIDE RECORDS SUMMARY | 2025-02-12 07:47 | XMS_ITS ---
Author Name [facility] [[email or web address]P Organization Unknown Care Team Organization Name Specialty Phone Email Start Date End Da te [facility] LAURA GUARDADO Primary Care 03/23/2022 01/02/20 24
--- OUTSIDE RECORDS SUMMARY | 2025-02-12 07:47 | XMS_ITS | Clinical Summary ---
Author Organization [facility] Address [address] [place] [address] Phone Care Team Providers Care Side Splitter Name Role Phone Lynsey Orozco Primary Care Provider + Allergies Active Allergy Reactions Criticality Noted Date Comments Lqlrhxh-Xqm-Qct Reductase Inhibitors 09/21/2018 Severe muscle aches at [...] chest CT scan which was performed at [facility] and shows interval clearing of previously seen [...] Encounters Date Type Department Care Team Description 12/17/2024 9:11 AM EDT - 12/17/2024 11:59 PM EDT Hospital Encounter 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 Rodriguez due to fibroids and DUB- still has ovaries EYE SURGERY 2012 PROCEDURE: HISTORICAL EYE SURGERY; COMMENT: ptosis correction COLONOSCOPY 11/25/2016 PROCEDURE: HISTORICAL COLONOSCOPY; COMMENT: repeat 10 years OTHER SURGICAL HISTORY 08/05/2020 Right PROCEDURE: [place] ANES THORACOTOMY & THORACOSCOPY PULMONARY RESC; COMMENT: 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 Handy CHOLECYSTECTOMY 10/17/2023 PROCEDURE: [place] LAPAROSCOPY SURG CHOLECYSTECTOMY Medical History Medical History [...] drink = 0.6 oz pur e alcohol) occassional Comments Unknown Sex and Gender Information Value Date Recorded Sex Assigned at Female 08/24/2024 11:43 AM EDT Legal Sex Female 2:13 PM EST Gender Identity Female 08/24/2024 11:43 AM EDT Sexual Orientation Straight 08/24/2024 11 :43 AM EDT Obstetrics History Last Filed Vital Signs Vital Sign Reading Time Taken Comments Blood Pressure 112/60 11/30/2024 11:00 AM EDT Pulse 76 11/30/2024 11:00 AM EDT Temperature 36.7 C (98 F) 11/06/2024 3:48 PM EDT Respiratory Rate 20 10/12/2024 10:5 3 AM EDT Oxygen Saturation 98% 11/30/2024 11: 00 AM EDT Inhaled Oxygen Concentration - - Weight 59.8 kg (131 lb 12.8 oz) 025 11:00 AM EDT Height 157.5 cm (5' 2 ) 11/30/2024 11:0 0 AM EDT Body Mass Index 24.11 11/30/2024 11:00 AM EDT Plan of Treatment Upcoming Encounters Date Type Department Care Team (Late st Contact Info) Description 05/13/2025 11:00 AM EST Office Visit Internal Medicine - [place] [address] [place] [id number] Lynsey Orozco PA [address] [place] [address] Health Maintenance Due Date Last Done Comments Pneumococcal Vaccine: 50+ Years (1 of 2 - PCV) 1974 Zoster Vaccines (1 of 2) 2005 RSV Immunization Adult Patients (1 - Risk 60-74 years 1-dose series) 2015 Falls Risk Assessment 04/24/2022 Hepatitis C Screening 04/24/2022 Medicare Annual Wellness Visit 04/24/2022 Social Influencers of Health Screening 04/24/2022 Depression Screening 05/16/2024 Breast Cancer Screening 08/28/2024 08/29/19 23, 06/26/2021, 04/22/2020, Additional history exists COVID-19 Vaccine ( - season) 2025 Influenza Vaccine (#1) 2025 DTaP,Tdap,and Td Vaccines [...] Procedure Name Priority Date/Time Associated Diagnosis Comments NM HEPATOBILIARY SYSTEM IMAGING Routine 12/17/2024 10:20 AM EDT Abdominal pain, chronic, right upper quadrant LIPID PANEL WITH REFLEX TO DIRECT LDL Routine 06/27/2024 11:11 AM EST Abnormal chest CT Right upper quadrant abdominal pain History of lung cancer Pure hypercholesterolemia [facility] SCREENING DIGITAL Routine 08/28/2022 3:10 PM EDT Encounter for screening mammogram for malignant neoplasm of breast [facility] DEXA AXIAL SKELETON Routine 04/22/2020 3:25 PM EST Encounter for screening for osteoporosis COLONOSCOPY Routine 11/25/2016 from Last 3 Months or Most Recently Relevant to Health Maintenance Results * NM Hepatobiliary System Imaging (12/17/2024 10:20 AM EDT) Anatomical Region Laterality Modality Body Nuclear Medicine 12/17/2024 3:31 PM EDT Impressions 12/17/2024 3:33 PM EDT Impression: 1. No evidence of common bile duct obstruction. 2. Status post cholecystectomy. Telerad JOHN ([id number]) -------- FINAL REPORT -------- Dictated By: Tessa Gaston Dictated Date: 12/17/2024 15:31 ET Assigned Physician: Tessa Gaston Reviewed and Electronically Signed By: Tessa Gaston Signed Date: 12/17/2024 15:33 ET Workstation ID: [id number] Transcribed By: Self Edit Transcribed Date: 12/17/2024 15:31 ET Narrative 12/17/2024 3:33 PM EDT History: Abdominal pain, recurrent. Status post cholecystectomy. Technique: Continuous anterior imaging of the abdomen was performed for 60 minutes following the intravenous administration of 4.8 mCi technetium 99m Choletec. Findings: The initial image demonstrates a normal, homogeneous pattern of radiotracer distribution throughout the liver. Activity is seen within the bile ducts by 15 minutes, and within the small bowel by 45 minutes. There is normal washout of hepatic activity. Procedure Note Tessa Gaston MD - 12/17/2024 History: Abdominal pain, recurrent. Status post cholecystectomy. Technique: Continuous anterior imaging of the abdomen was performed for 60minutes following the intravenous administration of 4.8 mCi technetium 99mCholetec. Findings: The initial image demonstrates a normal, homogeneous pattern ofradiotracer distribution throughout the liver. Activity is seen within thebile ducts by 15 minutes, and within the small bowel by 45 minutes. There is normal washout of hepatic activity. IMPRESSION: Impression: 1. No evidence of common bile duct obstruction. 2. Status post cholecystectomy. Telerad JOHN ([id number]) -------- FINAL REPORT -------- Dictated By: Tessa Gaston Dictated Date: 12/17/2024 15:31 ET Assigned Physician: Tessa Gaston Reviewed and Electronically Signed By: Tessa Gaston Signed Date: 12/17/2024 15:33 ET Workstation ID: [id number] Transcribed By: Self Edit Transcribed Date: 12/17/2024 15:31 ET Ame Ball NP IMG NM PROCEDURES Final Result * (ABNORMAL) Lipid panel with reflex to direct LDL (06/27/2024 11:11 AM EST) Cholesterol 320(H) 0 - 200 mg/dL LAB CHEMISTRY METHOD 06/27/2024 2:40 PM EST [facility] Triglycerides 93 0 - 150 mg/dL LAB CHEMISTRY METHOD 06/27/2024 2:40 PM EST [facility] HDL 108 >=40 mg/dL LAB CHEMISTRY METHOD 06/27/2024 2:40 PM EST [facility] Comment:Results verified by repeat testing LDL Calculated 193(H) 0 - 100 mg/dL LAB CHEMISTRY METHOD 06/27/2024 2:40 PM EST [facility] VLDL Cholesterol Javid 18.6 mg/dL LAB CHEMISTRY METHOD 06/27/2024 2:40 PM EST [facility] Non HDL Chol. (LDL+VLDL) 212(H) <145 mg/dL LAB CHEMISTRY METHOD 06/27/2024 2:40 PM EST [facility] Chol/HDL Ratio 3.0 0.0 - 4.4 LAB CHEMISTRY METHOD 06/27/2024 2:40 PM EST [facility] Blood Venous blood specimen / Unknown Venipuncture / Unknown 06/27/2024 11:11 AM EST 06/27/2024 12:44 PM EST us Lynsey LOPEZ LAB BLOOD ORDERABLES Fin al Result [facility] [address] [place] [address], * CARMELA SCREENING DIGITAL (08/28/2022 3:10 PM EDT) Anatomical Region Laterality Modality Mammography 08/26/2022 3:01 PM EDT Narrative 08/28/2022 3:10 PM EDT [facility] Diagnostic Imaging Department [address] [place] [address] Patient: CECILY KAPLAN./Age/Sex: 1955 - 67 - F Unit#: [id number] Location/Status: SPDIMAM/REG CLI Mnemonic/Ordering Site: [facility] Ordering Physician: PASCUAL MALDONADO MD [facility] Screening Digital - 08/26/22 - EXAM: Carmela Screening Digital EXAM DATE AND TIME: 08/26/2022 [...] the MLO projection. Computer aided detection with Zenter 7.2-H and Betyah 3D 3.1 was employed. TISSUE DENSITY: c. [...] RECOMMENDATION(S): 1: Special mammographic view(s) needed RIGHT [id number], [id number] 3340F, 7025F Dictating Physician: TESSA GASTON MD Electronically Signed by: TESSA GASTON MD Dic Date/Time: 08/28/22 1508 Sign date/Time: 08/28/22 1510 Procedure Note Tessa Gaston MD - 06/17/2023 [facility] Diagnostic Imaging Department [address] [place] [address] Patient: CECILY KAPLAN Tami LeeB./Age/Sex: 1955 - 67 - F Unit#: [id number] Location/Status: SPDIMAM/REG CLI Mnemonic/Ordering Site: [facility] Ordering Physician: PASCUAL MALDONADO MD [facility] Screening Digital - 08/26/22 - EXAM: [facility] Screening Digital EXAM DATE AND TIME: 08/26/2022 [...] the MLO projection. Computer aided detection with Zenter 7.2-H andBetyah 3D 3.1 was employed. TISSUE DENSITY: c. [...] RECOMMENDATION(S): 1: Special mammographic view(s) needed RIGHT [id number], [id number] 3340F, 7025F Dictating Physician: TESSA GASTON MD Electronically Signed by: TESSA GASTON MD Dic Date/Time: 08/28/22 1508 Sign date/Time: 08/28/22 1510 Pascual Maldonado MD IM BI PROCEDURES Final Result * [facility] DEXA AXIAL SKELETON (04/22/2020 3:25 PM EST) Anatomical Region Laterality Modality Mammography 04/22/2020 12:5 8 PM EST Narrative 04/22/2020 3:25 PM EST [facility] Diagnostic Imaging Department [address] [place] [id number] Patient: KAPLANCECILYO.B./Age/Sex: 1955 - 65 - F Unit#: [id number] [facility] Ordering Physician: PASCUAL MALDONADO MD [facility] Dexa Axial Skeleton - 04/22/201404 HISTORY: The [...] probability of hip fracture of 2.3%. Code 70495 Dictating Physician: ELENA DANIELSON MD Electronically Signed by: ELENA DANIELSON MD Dic Date/Time: 04/22/20 1521 Sign date/Time: 04/22/20 1525 Procedure Note Lexie Danielson MD - 05/04/2022 [facility] Diagnostic Imaging Department [address] [place] [address] Patient: CECILY KAPLAN D.O.B./Age/Sex: 1955 - 65 - F Unit#: [id number] Location/Status: [facility]/REG CLI Mnemonic/Ordering Site: [facility] Ordering Physician: PASCUAL MALDONADO MD [facility] Dexa Axial Skeleton - 04/22/20 - 1403 HISTORY: The patient is a 65-year-old postmenopausal [...] density of the femurs bilaterally is 0.77 gm/vg7wotku is 76% of that of young normals and 91% of that of age matched controls.This yields a T-score of -1.9 and a Z-score of -0.6 which is diagnostic of osteopenia. IMPRESSION: 1. Osteoporosis. 2. FRAX analysis yields a 10-year probability of major osteoporoticfracture of 8.9% and a 10-year probability of hip fracture of 2.3%. 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
== END 2025-02-12 07:41 | disposition home or self-care (01) ==
LOC: CF 07:40
PROVIDERS: Visit Provider Anesthesiology
DX: G58.8 Other specified mononeuropathies (principal); G89.12 Acute post-thoracotomy pain
CPT/HCPCS: 64420; J2003; J2795; Q9967

== ENCOUNTER 2025-02-12 12:42 | Outpatient (AMB) | payer MEDICARE, SELFPAY ==
[2025-02-12 12:56] VITALS: BP 109/73; PULSE 88; RESP 18; O2SAT 98; BMI 23.8
--- NOTE | 2025-02-12 12:56 | MHC.OFFVIS ---
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: No Allergies Atgtfzk-WJC-ZxR Reductase Inhibitor Allergy (Unknown, Verified 11/19/24 08:59) Muscle Aches Physical Exam Vital Signs: Last Vital Signs Pulse 88 02/12/25 12:56 Resp 18 02/12/25 12:56 BP 109/73 02/12/25 12:56 Pulse Ox 98 02/12/25 12:56 Oxygen Delivery Method Room Air 02/12/25 12:56 BMI result Body Mass Index 23.8 Assessment & Plan Assessment & Plan (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 Brittany is very pleasant 69 years old female who presents in my office with complains on intercostal neuralgia. She has a history of thoracotomy and lower right lobectomy, she complains since the surgery in in 2019 of intractable pain in right upper quadrant of the abdomen radiating into the right side of the chest and posterior surface of the chest. She came today to perform diagnostic intercostal nerve block. The patient was taken to the operating room and positioned prone on operating table. The informed consent was thoroughly explained to the patient risks and benefits were explained. The mid back and lateral chest were prepped with ChloraPrep and draped with sterile self adhesive utility towels. The palpation under x-ray guidance was performed and it looks like that the patient's pain was radiating alongside the rib 10 nerve. The picture of lower margin of the 10 3 was demonstrated on the screen. After that 22 gauge 3-1/2 inch Quincke point spinal needle was inserted extra anatomically and driven into the inferior margin of the right 10 rib under intermittent anterior posterior and lateral views. When needle tip entered 3 mm beyond the silhouette of the rib on the lateral view contrast injection was performed and it demonstrated spread of the contrast alongside the intercostal nerve trach. To that injection of the 5 cc of ropivacaine 0.5% was performed into the needle. Upon completion of the injection needle was removed and Band-Aid was applied. Patient tolerated the procedure well. Orders: Orders FL guidance in treatment room Today G58.8 - Other specified mononeuropathies Coding Level of Care Code Procedure Only Diagnoses Intercostal neuralgia G58.8 Post-thoracotomy pain syndrome G89.12
== END 2025-02-12 13:32 | disposition home or self-care (01) ==
LOC: HO.PMCPRC 12:42
PROVIDERS: PCP Physician Assistant; Visit Provider Anesthesiology
DX: G58.8 Other specified mononeuropathies (principal); G89.12 Acute post-thoracotomy pain
CPT/HCPCS: 64420; 77002

== ENCOUNTER 2025-02-14 10:17 | Outpatient (AMB) | payer MEDICARE, SELFPAY ==
[2025-02-14 10:27] VITALS: BP 112/67; PULSE 86; RESP 18; O2SAT 99; BMI 23.4
--- NOTE | 2025-02-14 10:27 | MHC.OFFVIS ---
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 She reports no help from this procedure. Therefore her pain is not related to intercostal neuralgia. I offered the patient to treat her pain as neuropathic and idiopathic pain with spinal cord stimulator. She is suffering from chronic pain syndrome. I offered her [employer] spinal cord stimulator trial to see if her pain will be improved with spinal cord stimulation. The patient was not sure whether she would consider this kind of treatment I told her if she would decide to go for the treatment she needs to go for psychological evaluation with [employer]. Brochure [employer] was given to the patient, the patient will start to call them tomorrow if she decides to go for it. Prior: is very pleasant 69 years old female who is presenting in my office with complains on right upper quadrant abdominal pain and sensation of bulging right upper quadrant. She reported that this pain started 2 months after the lobectomy surgery on the right she had performed to remove the lung cancer lesion. Since then she reports severe pain in the projection of the right abdominal wall radiating into the mid back in the area of the lateral and posterior lower right chest. She went for cholecystectomy 2 years after with successful removal of gallbladder however it did not alleviate her pain. She is under observation of thoracic surgeon and she goes for the CT scan once a year to determine if there is continuation of the growth of the cancer. She can not do activities of daily living because of her pain but she is able to sleep normally and she can take care of herself. She reports that movements aggravate her pain. Applications of heat called topical medications and oral medications make her pain better. She was taking gabapentin 200 mg 3 times a day with no side effects and minimal improvement. In terms of tissue damage he reports her pain as pinching, cramping, crushing, tight, squeezing, tearing sensation. She completed physical therapy 12 sessions and continues home exercise program with minimal improvement. Massage therapy does not make her pain better. Acupuncture does not patent make her pain better. She denies any past medical history short of history of lung cancer. Surgical history is above. She denies smoking cigarettes Nevro smoked. She admits occasional drink alcohol once a month she denies recreational drugs. Review of Systems Const All systems reviewed & are unremarkable except as noted in HPI and below ENT Reports Normal hearing present Neuro Reports Normal hearing present, Denies Abnormal speech present, Denies confusion and Denies Sensory deficit (Neuro) Psych Denies confusion Physical Exam Vital Signs: Last Vital Signs Pulse 86 02/14/25 10:27 Resp 18 02/14/25 10:27 BP 112/67 02/14/25 10:27 Pulse Ox 99 02/14/25 10:27 Oxygen Delivery Method Room Air 02/14/25 10:27 BMI result Body Mass Index 23.4 Const General: no acute distress; No confusion Nutritional Appearance: average body habitus and thin Orientation/consciousness: patient oriented x3 and No confusion Limitations: no limitations Eyes General: appearance normal, both eyes and all related structures Pupils: Equal, round and reactive pupils present EOM: EOMs intact bilaterally Neck Neck: Yes full ROM Chest Other: On inspection of the chest and anterior surface of the abdomen there are very well-healed 1 cm long thoracic incisions from prior thoracoscopy and cancer removal. On the anterior surface of the patient's abdomen there are also incisions from prior early performed gallbladder surgery. All incisions are very well-healed no signs of inflammation, swelling, redness, pathological discharge. Resp Effort & Inspection: normal respiratory effort, able to speak in complete sentences, normal respiratory pattern, no audible wheezes and no cough Cardio Jugular venous distension: no JVD GI Inspection: Yes normal to inspection Neuro General: patient oriented x3, gait normal and No confusion Cranial nerves: Yes CN's II-XII intact bilaterally, Yes Equal, round and reactive pupils present, Yes Normal hearing present and Yes Ability to bilaterally elevate shoulders present Speech: No Abnormal speech present Gait exam (Neuro): Normal gait present Motor exam (neuro): 5/5 motor strength present throughout Sensory Exam: No Sensory deficit (Neuro) Extrem General: No pedal edema Psych Speech and movement: Normal speech and movement present Affect: normal affect Attitude: cooperative Thought process: Normal thought process present Thought content: Normal thought content present Insight: Good insight present (Psych) Judgement: Good judgement present (Psych) Assessment & Plan Assessment & Plan (1) Chronic pain syndrome: Code(s): G89.4 - Chronic pain syndrome Category: Medical (2) Intractable abdominal pain: Code(s): R10.9 - Unspecified abdominal pain Category: Medical Plan Increase gabapentin did not result in pain improvement. Intercostal right rib 10 injection resulted in no pain alleviation. Therefore this patient is suffering from chronic pain syndrome and idiopathic pain. I offered her spinal cord stimulator [employer] procedure to help to alleviate her pain. I am planning to positioned in the electrodes in the projection of the T2 T3 possibly T3-T4 posterior epidural space in helping to alleviate her approximate T10 projection of the pain. Coding Level of Care Code Est Pt Level 3 (56935) Diagnoses Chronic pain syndrome G89.4 Intractable abdominal pain R10.9
--- OUTSIDE RECORDS SUMMARY | 2025-02-14 11:41 | XMS_ITS | Clinical Summary ---
Author Organization [facility] Address [address] [place] [address] Phone Care Team Providers Care Rheumatologist Name Role Phone Lynsey Orozco Primary Care Provider + Allergies Active Allergy Reactions Criticality Noted Date Comments Vhqctcq-Bbf-Dav Reductase Inhibitors 09/21/2018 Severe muscle aches at [...] chest CT scan which was performed at [facility] and shows interval clearing of previously seen [...] - 12/17/2024 11:59 PM EDT Hospital Encounter [facility] Nuclear Medicine [address] [place] [address] Abdominal pain, chronic, right upper quadrant Discharge Disposition: Home or Self Care 11/30/2024 11:20 AM EDT Consult Gastroenterology - [place] [address] [facility] [address] [facility] [address] [place] [phone] Ame Ball NP Abdominal pain, chronic, right [...] years OTHER SURGICAL HISTORY 08/05/2020 Right PROCEDURE: IA ANES THORACOTOMY & THORACOSCOPY PULMONARY RESC; COMMENT: 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 Handy CHOLECYSTECTOMY 10/17/2023 PROCEDURE: IA LAPAROSCOPY SURG CHOLECYSTECTOMY Medical History Medical History [...] AM EST Office Visit Internal Medicine - [place] [address] [place] [phone] Lynsey Orozco PA [address] [place] [address] Health Maintenance Due Date Last Done Comments [...] pain History of lung cancer Pure hypercholesterolemia [facility] SCREENING DIGITAL Routine 08/28/2022 3:10 PM EDT Encounter for screening mammogram for malignant neoplasm of breast [facility] DEXA AXIAL SKELETON Routine 04/22/2020 3:25 [...] obstruction. 2. Status post cholecystectomy. Telerad JOHN ([id number]) -------- FINAL REPORT -------- Dictated By: Tessa Gaston Dictated Date: 12/17/2024 15:31 ET Assigned Physician: Tessa Gaston Reviewed and Electronically Signed By: Tessa Gaston Signed Date: 12/17/2024 15:33 ET Workstation ID: [id number] Transcribed By: Self Edit Transcribed Date: 12/17/2024 [...] obstruction. 2. Status post cholecystectomy. Telerad JOHN ([id number]) -------- FINAL REPORT -------- Dictated By: Tessa Gaston Dictated Date: 12/17/2024 15:31 ET Assigned Physician: Tessa Gaston Reviewed and Electronically Signed By: Tessa Gaston Signed Date: 12/17/2024 15:33 ET Workstation ID: [id number] Transcribed By: Self Edit Transcribed Date: 12/17/2024 [...] al Result [facility] [address] [place] [address], * CARMELA SCREENING DIGITAL (08/28/2022 3:10 PM EDT) Anatomical Region Laterality Modality Mammography 08/26/2022 3:01 PM EDT Narrative 08/28/2022 3:10 PM EDT [facility] Diagnostic Imaging Department [address] [place] [address] Patient: CECILY KAPLAN./Age/Sex: 1955 - 67 - F Unit#: [id number] Location/Status: SPDIMAM/REG CLI Mnemonic/Ordering Site: [facility] Ordering Physician: PASCUAL MALDONADO MD [facility] Screening Digital - 08/26/22 - EXAM: Carmela [...] the MLO projection. Computer aided detection with Divided 7.2-H and [employer] 3D 3.1 was employed. TISSUE DENSITY: c. [...] RECOMMENDATION(S): 1: Special mammographic view(s) needed RIGHT 03970, 19969 3340F, 7025F Dictating Physician: TESSA GASTON MD Electronically Signed by: TESSA GASTON MD Dic Date/Time: 08/28/22 1508 Sign date/Time: 08/28/22 1510 Procedure Note Tessa Gaston MD - 06/17/2023 [facility] Diagnostic Imaging Department [address] [place] [address] Patient: CECILY KAPLAN Tami LeeB./Age/Sex: 1955 - 67 - F Unit#: [id number] Location/Status: SPDIMAM/REG CLI Mnemonic/Ordering Site: [facility] Ordering Physician: PASCUAL MALDONADO MD [facility] Screening Digital - 08/26/22 - EXAM: [facility] Screening Digital EXAM DATE AND [...] the MLO projection. Computer aided detection with Divided 7.2-H and[employer] 3D 3.1 was employed. TISSUE DENSITY: c. [...] RECOMMENDATION(S): 1: Special mammographic view(s) needed RIGHT 09058, 36947 3340F, 7025F Dictating Physician: TESSA GASTON MD Electronically Signed by: TESSA GASTON MD Dic Date/Time: 08/28/22 1508 Sign date/Time: 08/28/22 1510 Pascual Maldonado MD IM BI PROCEDURES Final Result * [facility] DEXA AXIAL SKELETON (04/22/2020 3:25 PM EST) Anatomical Region Laterality Modality Mammography 04/22/2020 12:5 8 PM EST Narrative 04/22/2020 3:25 PM EST [facility] Diagnostic Imaging Department [address] [place] [id number] Patient: KAPLANCECILYO.B./Age/Sex: 1955 - 65 - F Unit#: [id number] [facility] Ordering Physician: PASCUAL MALDONADO MD [facility] Dexa Axial Skeleton - 04/22/201404 [...] probability of hip fracture of 2.3%. Code 30572 Dictating Physician: ELENA DANIELSON MD Electronically Signed by: ELENA DANIELSON MD Dic Date/Time: 04/22/20 1521 Sign date/Time: 04/22/20 1525 Procedure Note Lexie Danielson MD - 05/04/2022 [facility] Diagnostic Imaging Department [address] [place] [address] Patient: CECILY KAPLAN D.O.B./Age/Sex: 1955 - 65 - F Unit#: [id number] Location/Status: [facility]/REG CLI Mnemonic/Ordering Site: [facility] Ordering Physician: PASCUAL MALDONADO MD [facility] Dexa Axial Skeleton - 04/22/20 - 1409 HISTORY: The patient is a 65-year-old postmenopausal [...] density of the femurs bilaterally is 0.77 gm/nd6qcjey is 76% of that of young normals and 91% of that of age matched controls.This yields a T-score of -1.9 and a Z-score of -0.6 which is diagnostic of osteopenia. IMPRESSION: 1. Osteoporosis. 2. FRAX analysis yields a 10-year probability of major osteoporoticfracture of 8.9% and a 10-year probability of hip fracture of 2.3%. 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
== END 2025-02-14 11:03 | disposition home or self-care (01) ==
PROVIDERS: PCP Physician Assistant; Visit Provider Anesthesiology
DX: G89.4 Chronic pain syndrome (principal); R10.9 Unspecified abdominal pain
CPT/HCPCS: 99213

== ENCOUNTER → 2025-02-14 10:17 | Outpatient (BNVA) | payer MEDICARE, SELFPAY | PROVIDERS: PCP Physician Assistant; Visit Provider Anesthesiology | DX: R10.9 Unspecified abdominal pain (principal); G89.4 Chronic pain syndrome | CPT/HCPCS: 99212 ==